=== PATIENT | female | born 1985 | race Caucasian/White ===

== ENCOUNTER → 2025-02-03 | Day surgery (SDC) | payer OTHER ==
[~2025-02-03] MED LIST: DICLOFENAC PO; FAMOTIDINE20 MG PO; FENTANYL CITRATE/PF 100MCG/2 ML INJ ONE; GABAPENTIN300 MG PO; GLUCAGON FOR INJ 1 MG VIAL ONE; HYOSCYAMINE SULFATE 0.5 MG/ML INJ ONE; LIDOCAINE HCL 2% LOCAL INJ 5 ML SDV VIAL INJ ONE; METHOCARBAMOL750 MG PO; MIDAZOLAM HCL 2 MG/2 ML VIAL ONE; OMEPRAZOLE40 MG PO; PROPOFOL IV EMULSION 10 MG/ML 20 ML VIAL ONE; PROPOFOL IV EMULSION 50 ML IV ONE
[2025-02-03] MEDS: LACTATED RINGER'S 1,000 ML ONE (13:07)
[2025-02-03 15:54] VITALS: TEMP 97.7
[2025-02-03 16:17] VITALS: BP 120/66; PULSE 86; RESP 18; O2SAT 99
[2025-02-06 07:12] LABS: ENDOMYSIAL ANTIBODIES, IGA Negative (Negative)
[2025-02-06 12:24] LABS: IMMUNOGLOBULIN A 135 mg/dL (87-352); TISSUE TRANSGLUTAMINASE IGA AB <2 U/mL (0-3)
== END | disposition home or self-care (01) ==
LOC: OR 12:21
PROVIDERS: ATTEND Internal Medicine Gastroenterology
DX: D64.89 Other specified anemias (principal); K31.89 Other diseases of stomach and duodenum; K44.9 Diaphragmatic hernia without obstruction or gangrene; K29.70 Gastritis, unspecified, without bleeding; K21.9 Gastro-esophageal reflux disease without esophagitis; Z98.84 Bariatric surgery status; Z71.3 Dietary counseling and surveillance; R03.0 Elevated blood-pressure reading, without diagnosis of hypertension; Z71.89 Other specified counseling; M06.9 Rheumatoid arthritis, unspecified; M19.90 Unspecified osteoarthritis, unspecified site; F17.290 Nicotine dependence, other tobacco product, uncomplicated; Z91.040 Latex allergy status; Z79.899 Other long term (current) drug therapy; Z68.42 Body mass index [BMI] 45.0-49.9, adult
CPT/HCPCS: 43239; 45378; 81025; 82784; 83516; 86256; J1610; J1980; J2003; J2250; J2470; J2704 ×2; J3010; J7121